=== PATIENT | female | born 1985 | race African-American/Black ===

== ENCOUNTER 2017-01-30 16:52 | Emergency (ER) | payer MEDICAID, OTHER ==
[~2017-01-30] VITALS: Ht 162.6 cm; Wt 74.5 kg
[~2017-01-30 16:52] MED LIST: HYDR-3965 PO; IBUP-1685 PO
[2017-01-30 17:22] LABS: BASOPHILS % (AUTO) 0.9 % (0.0-2.0); HEMATOCRIT 36.9 % (36-46); HEMOGLOBIN 12.5 g/dL (12.0-16.0); LYMPHOCYTES # (AUTO) 2.7 K/uL (1.0-4.8); LYMPHOCYTES % (AUTO) 23.6 % (22.0-44.0); MEAN CORPUSCULAR HEMOGLOBIN 29.1 pg (26.0-34.0); MEAN CORPUSCULAR VOLUME 86 fL (80-100); MONOCYTES # (AUTO) 0.7 K/uL (0.1-1.0); MONOCYTES % (AUTO) 5.9 % (2.0-9.0); NEUTROPHILS # (AUTO) 7.8 K/uL (1.8-7.7); NEUTROPHILS % (AUTO) 67.6 % (40.0-70.0); PLATELET COUNT (AUTO) 343 K/uL (150-450); RED BLOOD CELL COUNT(AUTO) 4.31 MIL/uL (4.00-5.20); RED CELL DISTRIBUTION WIDTH 13.4 % (11.5-14.5); WHITE BLOOD COUNT (AUTO) 11.5 K/uL (4.5-11.0)
[2017-01-30 17:38] LABS: ANION GAP 7 mmol/L (8-16); CALCIUM, TOTAL 8.8 mg/dL (8.8-10.5); CARBON DIOXIDE 30 mmol/L (22-29); CHLORIDE 104 mmol/L (98-107); CREATININE 0.67 mg/dL (0.60-1.30); GLOMERULAR FILTR. RATE CALC > 60 mL/min (>60); POTASSIUM 3.6 mmol/L (3.5-5.1); SODIUM SERUM 141 mmol/L (136-145); UREA NITROGEN, BLOOD 6 mg/dL (7-18)
[2017-01-30 18:05] LABS: ALANINE AMINOTRANSFERASE 17 U/L (12-78); ALBUMIN 3.3 g/dL (3.4-5.0); ASPARTATE AMINOTRANSFERASE 12 U/L (15-37); BILIRUBIN,TOTAL 0.2 mg/dL (0.1-1.0); TOTAL PROTEIN, SERUM 6.5 g/dL (6.4-8.2)
[2017-01-30] MEDS ORDERED: ACETAMINOPHEN 500 MG TABLET PO ONE (18:30)
[2017-01-30 21:14] VITALS: BP 120/69
== END 2017-01-30 22:00 | disposition home or self-care (01) ==
LOC: EMS 16:54
DX: O20.0 Threatened abortion (principal); I10 Essential (primary) hypertension; Z3A.01 Less than 8 weeks gestation of pregnancy
CPT/HCPCS: 76801; 76817; 99285

== ENCOUNTER 2017-06-28 14:30 | Emergency (ER) | payer OTHER ==
[~2017-06-28] VITALS: Ht 160 cm; Wt 78.2 kg
[2017-06-28 16:10] LABS: BASOPHILS # (AUTO) 0.04 K/uL (0.00-0.20); BASOPHILS % (AUTO) 0.3 % (0.0-2.0); EOSINOPHILS % (AUTO) 0.83 % (1.0-6.0); HEMATOCRIT 38.2 % (36-46); HEMOGLOBIN 13.1 g/dL (12.0-16.0); LYMPHOCYTES # (AUTO) 2.8 K/uL (1.0-4.8); LYMPHOCYTES % (AUTO) 23.4 % (22.0-44.0); MEAN CORPUSCULAR HEMOGLOBIN 29.5 pg (26.0-34.0); MEAN CORPUSCULAR HGB CONC 34.2 G/dL (31.0-37.0); MEAN CORPUSCULAR VOLUME 86 fL (80-100); MONOCYTES # (AUTO) 0.5 K/uL (0.1-1.0); NEUTROPHILS # (AUTO) 8.6 K/uL (1.8-7.7); NEUTROPHILS % (AUTO) 71.5 % (40.0-70.0); PLATELET COUNT (AUTO) 374 K/uL (150-450); RED BLOOD CELL COUNT(AUTO) 4.43 MIL/uL (4.00-5.20); RED CELL DISTRIBUTION WIDTH 12.9 % (11.5-14.5)
[2017-06-28 16:18] LABS: ANION GAP 7 mmol/L (8-16); CALCIUM, TOTAL 8.5 mg/dL (8.8-10.5); CARBON DIOXIDE 27 mmol/L (22-29); CHLORIDE 104 mmol/L (98-107); CREATININE 0.63 mg/dL (0.60-1.30); GLOMERULAR FILTR. RATE CALC > 60 mL/min (>60); POTASSIUM 3.7 mmol/L (3.5-5.1); SODIUM SERUM 138 mmol/L (136-145); UREA NITROGEN, BLOOD 8 mg/dL (7-18)
[2017-06-28 16:24] LABS: ALANINE AMINOTRANSFERASE 14 U/L (12-78); ALBUMIN 3.6 g/dL (3.4-5.0); ASPARTATE AMINOTRANSFERASE 12 U/L (15-37); BILIRUBIN,TOTAL 0.4 mg/dL (0.1-1.0)
[2017-06-28] MEDS ORDERED: ONDANSETRON HCL 4 MG/2 ML VIAL IVP ONE (16:45)
[2017-06-28] MEDS ORDERED: ACETAMINOPHEN 1000 MG/ISO-OSM 100 ML IV ONE (16:45)
[2017-06-28] MEDS ORDERED: SODIUM CHLORIDE 0.9% 1,000 ML IV ONE (16:45)
[2017-06-28 16:57] LABS: APPEARANCE,URINE CLOUDY (CLEAR); GLUCOSE, URINE (UA) NEGATIVE (NEGATIVE); KETONES,URINE NEGATIVE (NEGATIVE); LEUKOCYTE ESTERASE ,URINE MODERATE (NEGATIVE); OCCULT BLOOD,URINE SMALL (NEGATIVE); PROTEIN,URINE NEGATIVE (NEGATIVE)
[2017-06-28 17:00] LABS: ADD UA MICROSCOPIC YES
[2017-06-28 17:08] LABS: SQUAMOUS EPITHELIAL CELL,UR Many /LPF (None Seen)
[2017-06-28 17:50] VITALS: BP 138/74
== END 2017-06-28 18:35 | disposition home or self-care (01) ==
LOC: EMS 14:31
DX: O23.41 Unspecified infection of urinary tract in pregnancy, first trimester (principal); O10.911 Unspecified pre-existing hypertension complicating pregnancy, first trimester; O21.9 Vomiting of pregnancy, unspecified; O99.331 Smoking (tobacco) complicating pregnancy, first trimester; Z3A.08 8 weeks gestation of pregnancy
CPT/HCPCS: 36415; 76801; 76817; 80053; 81001; 83690; 84702; 84703; 85025; 87086; 96361; 96374; 96375; 99285; J0131; J2405; J7030

== ENCOUNTER 2017-08-13 03:25 | Emergency (ER) | payer OTHER ==
[~2017-08-13] VITALS: Ht 160 cm; Wt 73.6 kg
[2017-08-13] MEDS ORDERED: DOCO200C5 PO (03:43)
[2017-08-13] MEDS ORDERED: [UNRECOGNIZED DRUG - OTHER] PO (03:43)
[2017-08-13 04:25] LABS: BASOPHILS % (AUTO) 0.3 % (0.0-2.0); EOSINOPHILS % (AUTO) 1.1 % (1.0-6.0); HEMOGLOBIN 12.2 g/dL (12.0-16.0); LYMPHOCYTES # (AUTO) 1.8 K/uL (1.0-4.8); LYMPHOCYTES % (AUTO) 13.6 % (22.0-44.0); MEAN CORPUSCULAR HEMOGLOBIN 30.7 pg (26.0-34.0); MEAN CORPUSCULAR HGB CONC 34.9 G/dL (31.0-37.0); MEAN CORPUSCULAR VOLUME 88 fL (80-100); MONOCYTES # (AUTO) 0.7 K/uL (0.1-1.0); MONOCYTES % (AUTO) 5.5 % (2.0-9.0); NEUTROPHILS # (AUTO) 10.4 K/uL (1.8-7.7); NEUTROPHILS % (AUTO) 79.5 % (40.0-70.0); PLATELET COUNT (AUTO) 340 K/uL (150-450); RED BLOOD CELL COUNT(AUTO) 3.97 MIL/uL (4.00-5.20); RED CELL DISTRIBUTION WIDTH 12.3 % (11.5-14.5)
[2017-08-13 04:27] LABS: ANION GAP 2 mmol/L (8-16); CALCIUM, TOTAL 8.8 mg/dL (8.8-10.5); CARBON DIOXIDE 28 mmol/L (22-29); CHLORIDE 107 mmol/L (98-107); GLOMERULAR FILTR. RATE CALC > 60 mL/min (>60); GLUCOSE,RANDOM 99 mg/dL (70-110); POTASSIUM 3.9 mmol/L (3.5-5.1); SODIUM SERUM 137 mmol/L (136-145); UREA NITROGEN, BLOOD 15 mg/dL (7-18)
[2017-08-13 04:54] LABS: ALANINE AMINOTRANSFERASE 16 U/L (12-78); ALBUMIN 3.1 g/dL (3.4-5.0); ALKALINE PHOSPHATASE 40 U/L (46-116); ASPARTATE AMINOTRANSFERASE 12 U/L (15-37); BILIRUBIN,TOTAL 0.2 mg/dL (0.1-1.0); HCG,QUANTITATIVE 47229 mIU/mL (0-6); TOTAL PROTEIN, SERUM 6.9 g/dL (6.4-8.2)
[2017-08-13 04:56] LABS: APPEARANCE,URINE CLEAR (CLEAR); BILIRUBIN,URINE NEGATIVE (NEGATIVE); GLUCOSE, URINE (UA) NEGATIVE (NEGATIVE); KETONES,URINE NEGATIVE (NEGATIVE); LEUKOCYTE ESTERASE ,URINE NEGATIVE (NEGATIVE); NITRATE,URINE NEGATIVE (NEGATIVE); OCCULT BLOOD,URINE MODERATE (NEGATIVE); PROTEIN,URINE NEGATIVE (NEGATIVE); UROBILINOGEN,URINE 0.2 mg/dL (<=1.0)
[2017-08-13] MEDS ORDERED: SODIUM CHLORIDE 0.9% 1,000 ML IV ONE (05:00)
[2017-08-13] MEDS ORDERED: ONDANSETRON HCL 4 MG/2 ML VIAL IVP ONE (05:00)
[2017-08-13 05:12] LABS: BACTERIA,URINE Rare /HPF (None Seen); SQUAMOUS EPITHELIAL CELL,UR Few /LPF (None Seen); WBC,URINE 0-2 /HPF (0-5)
[2017-08-13 06:35] VITALS: BP 126/74
== END 2017-08-13 06:55 | disposition home or self-care (01) ==
LOC: EMS 03:26
DX: O26.892 Other specified pregnancy related conditions, second trimester (principal); R10.13 Epigastric pain; I10 Essential (primary) hypertension; F17.210 Nicotine dependence, cigarettes, uncomplicated; Z3A.15 15 weeks gestation of pregnancy; Z98.890 Other specified postprocedural states; Z79.899 Other long term (current) drug therapy
CPT/HCPCS: 36415; 76815; 80053; 81001; 84702; 85025; 96361; 96374; 99285; J2405; J7030

== ENCOUNTER 2017-11-18 20:05 | Observation (INO) | payer OTHER ==
[~2017-11-18] VITALS: Ht 160 cm; Wt 88.0 kg
[~2017-11-18 20:05] MED LIST changes: +DOCO200C5 PO; -HYDR-3965 PO; -IBUP-1685 PO; +[UNRECOGNIZED DRUG - OTHER] PO
[2017-11-18] MEDS ORDERED: PREN-134 PO (20:58)
[2017-11-18] MEDS ORDERED: DEXTROSE 5%-LACTATED RINGERS 1,000 ML IV ONE (21:15)
[2017-11-18 21:26] VITALS: BP 113/69
[2017-11-18 22:37] LABS: BILIRUBIN,URINE NEGATIVE (NEGATIVE); GLUCOSE, URINE (UA) NEGATIVE (NEGATIVE); KETONES,URINE NEGATIVE (NEGATIVE); LEUKOCYTE ESTERASE ,URINE SMALL (NEGATIVE); NITRATE,URINE NEGATIVE (NEGATIVE); OCCULT BLOOD,URINE MODERATE (NEGATIVE); PROTEIN,URINE NEGATIVE (NEGATIVE); UROBILINOGEN,URINE 0.2 mg/dL (<=1.0)
[2017-11-18 22:38] LABS: APPEARANCE,URINE HAZY (CLEAR)
[2017-11-18 22:49] LABS: BACTERIA,URINE Few /HPF (None Seen); SQUAMOUS EPITHELIAL CELL,UR Few /LPF (None Seen)
[2017-11-18 22:51] LABS: YEAST,URINE Rare /HPF (None Seen)
== END 2017-11-18 22:50 | disposition home or self-care (01) ==
LOC: 4S 20:05
PROVIDERS: ADMIT Obstetrics & Gynecology; ATTEND Obstetrics & Gynecology
DX: O26.893 Other specified pregnancy related conditions, third trimester (principal); Z3A.29 29 weeks gestation of pregnancy
CPT/HCPCS: 59025; 80307 ×8; 81001; 87086; 96360; G0378; X7700

== ENCOUNTER 2018-01-06 10:47 | Emergency (ER) | payer OTHER ==
[~2018-01-06] VITALS: Ht 165.1 cm; Wt 85.5 kg
[~2018-01-06 10:47] MED LIST changes: +PREN-134 PO
[2018-01-06] MEDS ORDERED: ACETAMINOPHEN 500 MG TABLET PO ONE (12:15)
[2018-01-06] MEDS ORDERED: PENICILLIN V POTASSIUM 500 MG TABLET PO ONE (12:15)
[2018-01-06 12:50] VITALS: BP 138/80
== END 2018-01-06 12:54 | disposition home or self-care (01) ==
LOC: EMS 10:49
DX: O16.3 Unspecified maternal hypertension, third trimester (principal); O99.333 Smoking (tobacco) complicating pregnancy, third trimester; O26.893 Other specified pregnancy related conditions, third trimester; O99.323 Drug use complicating pregnancy, third trimester; K04.7 Periapical abscess without sinus; F12.90 Cannabis use, unspecified, uncomplicated; Z3A.32 32 weeks gestation of pregnancy
CPT/HCPCS: 99283

== ENCOUNTER 2018-03-19 07:07 | Emergency (ER) | payer OTHER ==
[~2018-03-19] VITALS: Ht 160 cm; Wt 80.9 kg
[2018-03-19 07:48] VITALS: BP 149/109
[2018-03-19] MEDS ORDERED: IBUPROFEN 600 MG TABLET PO ONE (08:15)
== END 2018-03-19 09:45 | disposition home or self-care (01) ==
LOC: EMS 07:08
DX: S16.1XXA Strain of muscle, fascia and tendon at neck level, initial encounter (principal); I10 Essential (primary) hypertension; F17.210 Nicotine dependence, cigarettes, uncomplicated; F12.90 Cannabis use, unspecified, uncomplicated; Z87.440 Personal history of urinary (tract) infections; X58.XXXA Exposure to other specified factors, initial encounter; Y93.89 Activity, other specified; Y92.89 Other specified places as the place of occurrence of the external cause; Y99.8 Other external cause status
CPT/HCPCS: 99282; 99283

== ENCOUNTER 2018-05-31 19:54 | Emergency (ER) | payer OTHER | END 2018-05-31 20:04 | disposition left against medical advice (07) | LOC: EMS 19:56 | DX: R39.89 Other symptoms and signs involving the genitourinary system (principal); Z53.21 Procedure and treatment not carried out due to patient leaving prior to being seen by health care provider ==

== ENCOUNTER 2018-07-27 21:22 | Emergency (ER) | payer OTHER ==
[~2018-07-27] VITALS: Ht 154.9 cm; Wt 78.2 kg
[2018-07-27] MEDS ORDERED: LABE100 PO (21:28)
[2018-07-27] MEDS ORDERED: LIDOCAINE 1% 10 ML VIAL INJ ONE (22:00)
[2018-07-27] MEDS ORDERED: PERTUSS(ACELL),DIPH,TET VAC/PF 0.5 ML VIAL IM ONE (22:15)
[2018-07-27 23:02] VITALS: BP 139/95
== END 2018-07-27 23:05 | disposition home or self-care (01) ==
LOC: EMS 21:23
DX: S61.411A Laceration without foreign body of right hand, initial encounter (principal); I10 Essential (primary) hypertension; F17.210 Nicotine dependence, cigarettes, uncomplicated; F12.90 Cannabis use, unspecified, uncomplicated; W45.8XXA Other foreign body or object entering through skin, initial encounter; Y93.89 Activity, other specified; Y92.89 Other specified places as the place of occurrence of the external cause; Y99.8 Other external cause status
CPT/HCPCS: 12002; 90471; 90715; 99283; J3490

== ENCOUNTER 2018-08-01 11:48 | Emergency (ER) | payer OTHER ==
[~2018-08-01] VITALS: Ht 157.5 cm; Wt 78.2 kg
[~2018-08-01 11:48] MED LIST changes: -DOCO200C5 PO; +LABE100 PO; -PREN-134 PO; -[UNRECOGNIZED DRUG - OTHER] PO
[2018-08-01] MEDS ORDERED: BACITRACIN 0.9 GM PACKET OINTMENT TP ONE (13:00)
[2018-08-01 13:20] VITALS: BP 142/87
== END 2018-08-01 13:21 | disposition home or self-care (01) ==
LOC: EMS 11:49
DX: S61.411D Laceration without foreign body of right hand, subsequent encounter (principal); I10 Essential (primary) hypertension; F12.90 Cannabis use, unspecified, uncomplicated; F17.210 Nicotine dependence, cigarettes, uncomplicated; W45.8XXD Other foreign body or object entering through skin, subsequent encounter

== ENCOUNTER 2018-08-23 22:56 | Emergency (ER) | payer OTHER ==
[~2018-08-23] VITALS: Ht 160 cm; Wt 77.3 kg
[2018-08-23] MEDS ORDERED: LABETALOL PO (23:17)
[2018-08-24] MEDS ORDERED: KETOROLAC TROMETHAMINE 60 MG/2 ML VIAL IM ONE (02:00)
[2018-08-24 02:30] VITALS: BP 155/89
[2018-08-24] MEDS ORDERED: SULFAMETHOX/TRIMETH DS 800-160 MG/TABLET PO ONE (03:15)
== END 2018-08-24 03:23 | disposition home or self-care (01) ==
LOC: EMS 22:57
DX: S61.411D Laceration without foreign body of right hand, subsequent encounter (principal); I10 Essential (primary) hypertension; F17.210 Nicotine dependence, cigarettes, uncomplicated; F12.90 Cannabis use, unspecified, uncomplicated; Z48.02 Encounter for removal of sutures; X58.XXXD Exposure to other specified factors, subsequent encounter
CPT/HCPCS: 96372; 99283; J1885

== ENCOUNTER 2019-02-19 22:33 | Emergency (ER) | payer OTHER ==
[~2019-02-19] VITALS: Ht 160 cm; Wt 75.9 kg
[~2019-02-19 22:33] MED LIST changes: -LABE100 PO; +LABETALOL PO
[2019-02-19 23:06] LABS: BASOPHILS % (AUTO) 0.3 % (0.0-2.0); EOSINOPHILS % (AUTO) 0.8 % (1.0-6.0); HEMATOCRIT 36.5 % (36-46); HEMOGLOBIN 12.3 g/dL (12.0-16.0); LYMPHOCYTES # (AUTO) 1.4 K/uL (1.0-4.8); MEAN CORPUSCULAR HEMOGLOBIN 29.4 pg (26.0-34.0); MEAN CORPUSCULAR HGB CONC 33.6 G/dL (31.0-37.0); MEAN CORPUSCULAR VOLUME 88 fL (80-100); MONOCYTES # (AUTO) 0.6 K/uL (0.1-1.0); MONOCYTES % (AUTO) 7.3 % (2.0-9.0); NEUTROPHILS # (AUTO) 6.6 K/uL (1.8-7.7); NEUTROPHILS % (AUTO) 75.6 % (40.0-70.0); PLATELET COUNT (AUTO) 330 K/uL (150-450); RED BLOOD CELL COUNT(AUTO) 4.16 MIL/uL (4.00-5.20); RED CELL DISTRIBUTION WIDTH 12.9 % (11.5-14.5)
[2019-02-19 23:14] LABS: ANION GAP 6 mmol/L (8-16); CALCIUM, TOTAL 8.7 mg/dL (8.8-10.5); CARBON DIOXIDE 29 mmol/L (22-29); CHLORIDE 105 mmol/L (98-107); GLOMERULAR FILTR. RATE CALC > 60 mL/min (>60); GLUCOSE,RANDOM 77 mg/dL (70-110); POTASSIUM 3.3 mmol/L (3.5-5.1); SODIUM SERUM 140 mmol/L (136-145); UREA NITROGEN, BLOOD 8 mg/dL (7-18)
[2019-02-19 23:40] LABS: ALANINE AMINOTRANSFERASE 17 U/L (12-78); ALBUMIN 2.8 g/dL (3.4-5.0); ALKALINE PHOSPHATASE 58 U/L (46-116); ASPARTATE AMINOTRANSFERASE 17 U/L (15-37); BILIRUBIN,TOTAL 0.2 mg/dL (0.1-1.0); LIPASE 103 U/L (73-393); TOTAL PROTEIN, SERUM 6.6 g/dL (6.4-8.2)
[2019-02-19 23:41] LABS: HCG,QUANTITATIVE 74602 mIU/mL (0-6)
[2019-02-20 01:02] LABS: APPEARANCE,URINE CLEAR (CLEAR); BILIRUBIN,URINE NEGATIVE (NEGATIVE); GLUCOSE, URINE (UA) NEGATIVE (NEGATIVE); KETONES,URINE NEGATIVE (NEGATIVE); LEUKOCYTE ESTERASE ,URINE SMALL (NEGATIVE); NITRATE,URINE NEGATIVE (NEGATIVE); OCCULT BLOOD,URINE MODERATE (NEGATIVE); PH,URINE 6.5 (5.0-8.0); PROTEIN,URINE NEGATIVE (NEGATIVE)
[2019-02-20 01:09] LABS: BACTERIA,URINE None Seen /HPF (None Seen); SQUAMOUS EPITHELIAL CELL,UR Moderate /LPF (None Seen)
[2019-02-20] MEDS ORDERED: CEPHALEXIN MONOHYDRATE 500 MG CAPSULE PO ONE (02:00)
[2019-02-20 02:20] VITALS: BP 121/68
== END 2019-02-20 02:30 | disposition home or self-care (01) ==
LOC: EMS 22:39
DX: O21.0 Mild hyperemesis gravidarum (principal); O23.41 Unspecified infection of urinary tract in pregnancy, first trimester; Z3A.13 13 weeks gestation of pregnancy
CPT/HCPCS: 76801; 76817; 87086

== ENCOUNTER 2019-08-11 09:42 | Emergency (ER) | payer OTHER ==
[~2019-08-11] VITALS: Ht 167.6 cm; Wt 68.2 kg
[2019-08-11] MEDS ORDERED: NIFE10 PO (09:58)
[2019-08-11] MEDS ORDERED: LABE100T8 PO (09:58)
[2019-08-11] MEDS ORDERED: DEXAMETHASONE SOD PHOS 4 MG/ML 5 ML VIAL IVP ONE (10:15)
[2019-08-11] MEDS ORDERED: KETOROLAC TROMETHAMINE 30 MG/ML VIAL IVP ONE (10:15)
[2019-08-11] MEDS ORDERED: IOVERSOL 320 MG/ML 100 ML VIAL ONE (10:56)
[2019-08-11] MEDS ORDERED: SODIUM CHLORIDE 0.9% 100 ML ONE (10:56)
[2019-08-11 11:17] LABS: BASOPHILS % (AUTO) 0.3 % (0.0-2.0); EOSINOPHILS % (AUTO) 1.6 % (1.0-6.0); HEMATOCRIT 35.9 % (36-46); HEMOGLOBIN 11.3 g/dL (12.0-16.0); LYMPHOCYTES # (AUTO) 1.6 K/uL (1.0-4.8); LYMPHOCYTES % (AUTO) 14.5 % (22.0-44.0); MEAN CORPUSCULAR HEMOGLOBIN 25.4 pg (26.0-34.0); MEAN CORPUSCULAR HGB CONC 31.6 G/dL (31.0-37.0); MEAN CORPUSCULAR VOLUME 81 fL (80-100); MONOCYTES % (AUTO) 8.8 % (2.0-9.0); NEUTROPHILS # (AUTO) 8.1 K/uL (1.8-7.7); NEUTROPHILS % (AUTO) 74.8 % (40.0-70.0); PLATELET COUNT (AUTO) 441 K/uL (150-450); RED BLOOD CELL COUNT(AUTO) 4.46 MIL/uL (4.00-5.20); RED CELL DISTRIBUTION WIDTH 14.6 % (11.5-14.5)
[2019-08-11 11:26] LABS: ANION GAP 6 mmol/L (8-16); CALCIUM, TOTAL 8.8 mg/dL (8.8-10.5); CARBON DIOXIDE 30 mmol/L (22-29); CHLORIDE 105 mmol/L (98-107); CREATININE 0.66 mg/dL (0.60-1.30); GLOMERULAR FILTR. RATE CALC > 60 mL/min (>60); GLUCOSE,RANDOM 100 mg/dL (70-110); POTASSIUM 3.3 mmol/L (3.5-5.1); SODIUM SERUM 141 mmol/L (136-145); UREA NITROGEN, BLOOD 11 mg/dL (7-18)
[2019-08-11 11:38] LABS: ALANINE AMINOTRANSFERASE 12 U/L (12-78); ALBUMIN 3.4 g/dL (3.4-5.0); ALKALINE PHOSPHATASE 93 U/L (46-116); ASPARTATE AMINOTRANSFERASE 14 U/L (15-37); BILIRUBIN,TOTAL 0.7 mg/dL (0.1-1.0); HCG,QUANTITATIVE < 1 mIU/mL (0-6); TOTAL PROTEIN, SERUM 7.5 g/dL (6.4-8.2)
[2019-08-11] MEDS ORDERED: AMOXICILLIN TRIHYDRATE 250 MG CAPSULE PO ONE (13:00)
[2019-08-11 14:34] VITALS: BP 125/70
== END 2019-08-11 14:35 | disposition home or self-care (01) ==
LOC: EMS 09:44
DX: E86.0 Dehydration (principal); J02.0 Streptococcal pharyngitis; I10 Essential (primary) hypertension; F17.210 Nicotine dependence, cigarettes, uncomplicated; F12.90 Cannabis use, unspecified, uncomplicated
CPT/HCPCS: 36415; 70491; 71046; 80053; 84702; 85025; 87430; 96374; 96375; 99284; 99406; J1100; J1885; J7050; Q9967

== ENCOUNTER 2020-01-10 11:58 | Emergency (ER) | payer OTHER ==
[~2020-01-10] VITALS: Ht 160 cm; Wt 82.7 kg
[~2020-01-10 11:58] MED LIST changes: +LABE100T8 PO; -LABETALOL PO; +NIFE10 PO
[2020-01-10] MEDS ORDERED: NIFEdipine 10 MG CAPSULE PO ONE (12:15)
[2020-01-10] MEDS ORDERED: LABETALOL HCL 100 MG TABLET PO ONE (12:15)
[2020-01-10] MEDS ORDERED: IBUPROFEN 600 MG TABLET PO ONE (12:15)
[2020-01-10 12:36] LABS: BASOPHILS % (AUTO) 0.6 % (0.0-2.0); EOSINOPHILS % (AUTO) 2.6 % (1.0-6.0); HEMATOCRIT 39.4 % (36-46); HEMOGLOBIN 12.6 g/dL (12.0-16.0); LYMPHOCYTES # (AUTO) 2.3 K/uL (1.0-4.8); LYMPHOCYTES % (AUTO) 26.7 % (22.0-44.0); MEAN CORPUSCULAR HEMOGLOBIN 25.8 pg (26.0-34.0); MEAN CORPUSCULAR HGB CONC 31.9 G/dL (31.0-37.0); MEAN CORPUSCULAR VOLUME 81 fL (80-100); MONOCYTES # (AUTO) 0.5 K/uL (0.1-1.0); NEUTROPHILS # (AUTO) 5.5 K/uL (1.8-7.7); NEUTROPHILS % (AUTO) 64.1 % (40.0-70.0); PLATELET COUNT (AUTO) 350 K/uL (150-450); RED BLOOD CELL COUNT(AUTO) 4.88 MIL/uL (4.00-5.20); RED CELL DISTRIBUTION WIDTH 15.2 % (11.5-14.5)
[2020-01-10 13:14] VITALS: BP 159/94
== END 2020-01-10 13:18 | disposition home or self-care (01) ==
LOC: EMS 12:04
DX: N93.8 Other specified abnormal uterine and vaginal bleeding (principal); I10 Essential (primary) hypertension; F17.210 Nicotine dependence, cigarettes, uncomplicated

== ENCOUNTER 2020-01-31 00:23 | Emergency (ER) | payer OTHER ==
[~2020-01-31] VITALS: Ht 160 cm; Wt 80.0 kg
[2020-01-31] MEDS ORDERED: SODIUM CHLORIDE 0.9% 1,000 ML IV ONE (01:45)
[2020-01-31] MEDS ORDERED: KETOROLAC TROMETHAMINE 30 MG/ML VIAL IVP ONE (01:45)
[2020-01-31] MEDS ORDERED: 0.9% SODIUM CHLORIDE 10 ML SYRINGE IVP PRN (01:45)
[2020-01-31 02:13] LABS: BASOPHILS % (AUTO) 0.4 % (0.0-2.0); EOSINOPHILS % (AUTO) 1.5 % (1.0-6.0); HEMATOCRIT 37.1 % (36-46); HEMOGLOBIN 12.3 g/dL (12.0-16.0); LYMPHOCYTES # (AUTO) 1.5 K/uL (1.0-4.8); LYMPHOCYTES % (AUTO) 12.6 % (22.0-44.0); MEAN CORPUSCULAR HEMOGLOBIN 26.5 pg (26.0-34.0); MEAN CORPUSCULAR HGB CONC 33.1 G/dL (31.0-37.0); MEAN CORPUSCULAR VOLUME 80 fL (80-100); MONOCYTES # (AUTO) 1.1 K/uL (0.1-1.0); MONOCYTES % (AUTO) 9.2 % (2.0-9.0); NEUTROPHILS # (AUTO) 8.8 K/uL (1.8-7.7); NEUTROPHILS % (AUTO) 76.3 % (40.0-70.0); PLATELET COUNT (AUTO) 358 K/uL (150-450); RED BLOOD CELL COUNT(AUTO) 4.63 MIL/uL (4.00-5.20); RED CELL DISTRIBUTION WIDTH 15.1 % (11.5-14.5)
[2020-01-31 02:26] LABS: PROTHROMBIN TIME 9.9 SEC (9.4-11.6)
[2020-01-31 02:27] LABS: ANION GAP 14 mmol/L (8-16); CALCIUM, TOTAL 8.5 mg/dL (8.8-10.5); CARBON DIOXIDE 26 mmol/L (22-29); CHLORIDE 103 mmol/L (98-107); GLOMERULAR FILTR. RATE CALC > 60 mL/min (>60); GLUCOSE,RANDOM 119 mg/dL (70-110); SODIUM SERUM 143 mmol/L (136-145); UREA NITROGEN, BLOOD 9 mg/dL (7-18)
[2020-01-31 02:33] LABS: ALANINE AMINOTRANSFERASE 19 U/L (12-78); ALBUMIN 3.5 g/dL (3.4-5.0); ALKALINE PHOSPHATASE 65 U/L (46-116); ASPARTATE AMINOTRANSFERASE 13 U/L (15-37); BILIRUBIN,TOTAL 0.3 mg/dL (0.1-1.0); TOTAL PROTEIN, SERUM 7.1 g/dL (6.4-8.2)
[2020-01-31 02:36] LABS: LACTIC ACID 1.6 mmol/L (0.4-2.0)
[2020-01-31] MEDS ORDERED: POTASSIUM CHLORIDE 20 MEQ ER TABLET PO ONE (03:00)
[2020-01-31 03:10] LABS: APPEARANCE,URINE CLOUDY (CLEAR); BILIRUBIN,URINE NEGATIVE (NEGATIVE); GLUCOSE, URINE (UA) NEGATIVE (NEGATIVE); KETONES,URINE NEGATIVE (NEGATIVE); LEUKOCYTE ESTERASE ,URINE MODERATE (NEGATIVE); NITRATE,URINE NEGATIVE (NEGATIVE); OCCULT BLOOD,URINE LARGE (NEGATIVE); PH,URINE 6.5 (5.0-8.0); PROTEIN,URINE POS 1+ (NEGATIVE)
[2020-01-31 04:00] LABS: BACTERIA,URINE Few /HPF (None Seen); SQUAMOUS EPITHELIAL CELL,UR Few /LPF (None Seen); YEAST,URINE None Seen /HPF (None Seen)
[2020-01-31] MEDS ORDERED: CefTRIAXone 1 GM/DEXTROSE 50 ML IV ONE (06:15)
[2020-01-31 06:50] VITALS: BP 142/91
== END 2020-01-31 07:34 | disposition home or self-care (01) ==
LOC: EMS 00:23
DX: Q61.3 Polycystic kidney, unspecified (principal); F17.210 Nicotine dependence, cigarettes, uncomplicated; F12.90 Cannabis use, unspecified, uncomplicated
CPT/HCPCS: 36415; 74176; 80053; 81001; 81025; 83605; 84703; 85025; 85610; 87077; 87086; 96365; 96375; 99285; J0696; J1885; J7030

== ENCOUNTER 2020-03-02 22:35 | Inpatient (IN) | payer OTHER ==
[~2020-03-02] VITALS: Ht 160 cm; Wt 80.0 kg
[2020-03-03] MEDS ORDERED: PIPERACILLIN/TAZO 3.375 GM/D5W 50 ML IV ONE
[2020-03-03] MEDS ORDERED: MORPHINE SULFATE 2 MG/ML SYRINGE IVP ONE
[2020-03-03] MEDS ORDERED: ACETAMINOPHEN 500 MG TABLET PO ONE
[2020-03-03 00:03] LABS: BASOPHILS % (AUTO) 0.9 % (0.0-2.0); EOSINOPHILS % (AUTO) 1.2 % (1.0-6.0); HEMATOCRIT 31.2 % (36-46); HEMOGLOBIN 10.4 g/dL (12.0-16.0); LYMPHOCYTES # (AUTO) 1.9 K/uL (1.0-4.8); LYMPHOCYTES % (AUTO) 16.9 % (22.0-44.0); MEAN CORPUSCULAR HEMOGLOBIN 27.4 pg (26.0-34.0); MEAN CORPUSCULAR HGB CONC 33.4 G/dL (31.0-37.0); MEAN CORPUSCULAR VOLUME 82 fL (80-100); MONOCYTES # (AUTO) 1.1 K/uL (0.1-1.0); MONOCYTES % (AUTO) 9.5 % (2.0-9.0); NEUTROPHILS % (AUTO) 71.5 % (40.0-70.0); PLATELET COUNT (AUTO) 509 K/uL (150-450); RED CELL DISTRIBUTION WIDTH 16.2 % (11.5-14.5)
[2020-03-03 00:16] LABS: ANION GAP 9 mmol/L (8-16); CALCIUM, TOTAL 8.3 mg/dL (8.8-10.5); CARBON DIOXIDE 32 mmol/L (22-29); CHLORIDE 100 mmol/L (98-107); CREATININE 1.12 mg/dL (0.60-1.30); GLOMERULAR FILTR. RATE CALC > 60 mL/min (>60); GLUCOSE,RANDOM 104 mg/dL (70-110); POTASSIUM 3.6 mmol/L (3.5-5.1); SODIUM SERUM 141 mmol/L (136-145); UREA NITROGEN, BLOOD 11 mg/dL (7-18)
[2020-03-03 00:19] LABS: INR 1.1 (0.9-1.1); PROTHROMBIN TIME 11.1 SEC (9.4-11.6)
[2020-03-03 00:35] LABS: ALANINE AMINOTRANSFERASE 21 U/L (12-78); ALBUMIN 2.5 g/dL (3.4-5.0); ALKALINE PHOSPHATASE 66 U/L (46-116); ASPARTATE AMINOTRANSFERASE 18 U/L (15-37); BILIRUBIN,TOTAL 0.3 mg/dL (0.1-1.0); HCG,QUANTITATIVE < 1 mIU/mL (0-6); LIPASE 110 U/L (73-393); TOTAL PROTEIN, SERUM 7.3 g/dL (6.4-8.2)
[2020-03-03] MEDS ORDERED: SODIUM CHLORIDE 0.9% 1,000 ML IV ONE (00:45)
[2020-03-03 01:45] VITALS: BP 128/76
[2020-03-03] MEDS ORDERED: 0.9% SODIUM CHLORIDE 10 ML SYRINGE IVP PRN (01:45)
[2020-03-03] MEDS ORDERED: ACETAMINOPHEN 325 MG TABLET PO PRN ×2 (01:45→02:15)
[2020-03-03] MEDS ORDERED: ONDANSETRON HCL 4 MG/2 ML VIAL IVP PRN ×2 (01:45→02:15)
[2020-03-03] MEDS ORDERED: TraMADol HCL 50 MG TABLET PO SCH (02:15)
[2020-03-03 02:16] LABS: APPEARANCE,URINE CLEAR (CLEAR); BILIRUBIN,URINE NEGATIVE (NEGATIVE); GLUCOSE, URINE (UA) NEGATIVE (NEGATIVE); KETONES,URINE NEGATIVE (NEGATIVE); LEUKOCYTE ESTERASE ,URINE NEGATIVE (NEGATIVE); NITRATE,URINE NEGATIVE (NEGATIVE); OCCULT BLOOD,URINE MODERATE (NEGATIVE); PH,URINE 6.5 (5.0-8.0); PROTEIN,URINE NEGATIVE (NEGATIVE)
[2020-03-03 02:43] LABS: BACTERIA,URINE Rare /HPF (None Seen); SQUAMOUS EPITHELIAL CELL,UR Few /LPF (None Seen); WBC,URINE 0-2 /HPF (0-5)
[2020-03-03] MEDS ORDERED: PNEUMOCOCCAL VACCINE POLYVALENT 0.5 ML VIAL [PPSV23] IM ONE (03:30)
[2020-03-03] MEDS ORDERED: PIPERACILLIN/TAZO 3.375 GM/D5W 50 ML IV SCH (10:00)
== END 2020-03-03 05:30 | disposition left against medical advice (07) | DRG 463 ==
LOC: EMS 22:38 → 6N 03-03 01:56
PROVIDERS: ADMIT Internal Medicine; ATTEND Internal Medicine
DX: N15.1 Renal and perinephric abscess (principal); Z16.11 Resistance to penicillins; I10 Essential (primary) hypertension; K76.89 Other specified diseases of liver; R31.29 Other microscopic hematuria; F19.10 Other psychoactive substance abuse, uncomplicated; F17.210 Nicotine dependence, cigarettes, uncomplicated; Z87.440 Personal history of urinary (tract) infections
CPT/HCPCS: 87040; J2270; J2543; J7030

== ENCOUNTER 2020-03-03 05:53 | Emergency (ER) | payer OTHER ==
[~2020-03-03] VITALS: Ht 160 cm; Wt 80.0 kg
[2020-03-03 07:26] VITALS: BP 145/90
== END 2020-03-03 07:30 | disposition home or self-care (01) ==
LOC: EMS 05:53
DX: N15.1 Renal and perinephric abscess (principal); I10 Essential (primary) hypertension; F17.210 Nicotine dependence, cigarettes, uncomplicated; F12.90 Cannabis use, unspecified, uncomplicated
CPT/HCPCS: 99283; Z7502

== ENCOUNTER 2021-06-07 11:19 | Emergency (ER) | payer OTHER ==
[~2021-06-07] VITALS: Ht 160 cm; Wt 79.1 kg
[2021-06-07] MEDS ORDERED: HYDROCODONE/ACETAMINOPHEN 5-325 MG TABLET PO ONE (13:00)
[2021-06-07 13:47] LABS: BASOPHILS % (AUTO) 0.6 % (0.0-2.0); EOSINOPHILS % (AUTO) 0.2 % (1.0-6.0); HEMATOCRIT 45.2 % (36-46); HEMOGLOBIN 15.1 g/dL (12.0-16.0); LYMPHOCYTES # (AUTO) 1.4 K/uL (1.0-4.8); LYMPHOCYTES % (AUTO) 7.6 % (22.0-44.0); MEAN CORPUSCULAR HEMOGLOBIN 29.1 pg (26.0-34.0); MEAN CORPUSCULAR HGB CONC 33.4 G/dL (31.0-37.0); MEAN CORPUSCULAR VOLUME 87 fL (80-100); MONOCYTES % (AUTO) 5.2 % (2.0-9.0); NEUTROPHILS # (AUTO) 15.9 K/uL (1.8-7.7); PLATELET COUNT (AUTO) 424 K/uL (150-450); RED BLOOD CELL COUNT(AUTO) 5.18 MIL/uL (4.00-5.20); RED CELL DISTRIBUTION WIDTH 13.1 % (11.5-14.5)
[2021-06-07 13:51] LABS: BILIRUBIN,URINE NEGATIVE (NEGATIVE); GLUCOSE, URINE (UA) NEGATIVE (NEGATIVE); KETONES,URINE NEGATIVE (NEGATIVE); LEUKOCYTE ESTERASE ,URINE MODERATE (NEGATIVE); NITRATE,URINE NEGATIVE (NEGATIVE); PROTEIN,URINE SEE CONFIRM (NEGATIVE); UROBILINOGEN,URINE 0.2 mg/dL (<=1.0)
[2021-06-07 13:54] LABS: NEUTROPHILS % (AUTO) 86.4 % (40.0-70.0)
[2021-06-07 13:55] LABS: ANION GAP 7 mmol/L (8-16); CALCIUM, TOTAL 8.8 mg/dL (8.8-10.5); CARBON DIOXIDE 28 mmol/L (22-29); CHLORIDE 99 mmol/L (98-107); CREATININE 1.05 mg/dL (0.60-1.30); GLOMERULAR FILTR. RATE CALC > 60 mL/min (>60); GLUCOSE,RANDOM 170 mg/dL (70-110); POTASSIUM 3.7 mmol/L (3.5-5.1); SODIUM SERUM 134 mmol/L (136-145); UREA NITROGEN, BLOOD 12 mg/dL (7-18)
[2021-06-07 13:55] LABS: APPEARANCE,URINE SLIGHTLY CLOUDY (CLEAR); OCCULT BLOOD,URINE SMALL (NEGATIVE); SULFOSALICYLIC ACID,URINE 2+ (Negative)
[2021-06-07 13:56] LABS: BACTERIA,URINE Many /HPF (None Seen); SQUAMOUS EPITHELIAL CELL,UR Few /LPF (None Seen)
[2021-06-07 14:09] LABS: ALANINE AMINOTRANSFERASE 30 U/L (12-78); ALBUMIN 3.7 g/dL (3.4-5.0); ALKALINE PHOSPHATASE 98 U/L (46-116); ASPARTATE AMINOTRANSFERASE 17 U/L (15-37); BILIRUBIN,TOTAL 1.1 mg/dL (0.1-1.0); HCG,QUANTITATIVE 1 mIU/mL (0-6); TOTAL PROTEIN, SERUM 8.9 g/dL (6.4-8.2)
[2021-06-07] MEDS ORDERED: CefTRIAXone 1 GM/DEXTROSE 50 ML IV ONE (14:30)
[2021-06-07] MEDS ORDERED: KETOROLAC TROMETHAMINE 30 MG/ML VIAL IVP ONE (14:30)
[2021-06-07] MEDS ORDERED: SODIUM CHLORIDE 0.9% 1,000 ML IV ONE (14:30)
[2021-06-07] MEDS ORDERED: ONDANSETRON HCL 4 MG/2 ML VIAL IVP PRN ×2 (15:15→16:45)
[2021-06-07] MEDS ORDERED: HYDROCODONE/ACETAMINOPHEN 5-325 MG TABLET PO PRN ×3 (15:15→17:00)
[2021-06-07] MEDS ORDERED: MORPHINE SULFATE 4 MG/ML SYRINGE IVP PRN (15:15)
[2021-06-07] MEDS ORDERED: ACETAMINOPHEN 325 MG TABLET PO PRN ×2 (15:15→16:45)
[2021-06-07 15:27] LABS: COVID AG,FIA SOURCE NASOPHARYNGEAL
[2021-06-07 16:43] VITALS: BP 137/88
[2021-06-07] MEDS ORDERED: BISACODYL 10 MG RECTAL RECTAL SUPPOSITORY PR PRN (16:45)
[2021-06-07] MEDS ORDERED: ALBUTEROL SULFATE 2.5 MG/0.5 ML NEB SOLUTION NEB PRN (16:45)
[2021-06-07] MEDS ORDERED: MORPHINE SULFATE 2 MG/ML SYRINGE IVP PRN (16:45)
[2021-06-07] MEDS ORDERED: DOCUSATE SODIUM 100 MG CAPSULE PO PRN (16:45)
[2021-06-07] MEDS ORDERED: 0.9% SODIUM CHLORIDE 10 ML SYRINGE IVP PRN (16:45)
[2021-06-07] MEDS ORDERED: IPRATROPIUM BROMIDE 0.5 MG/2.5 ML NEB SOLUTION NEB PRN (16:45)
[2021-06-07] MEDS ORDERED: SODIUM CHLORIDE 0.9% 1,000 ML IV SCH (17:00)
[2021-06-08] MEDS ORDERED: CefTRIAXone 1 GM/DEXTROSE 50 ML IV SCH (09:00)
== END 2021-06-07 19:21 | disposition left against medical advice (07) ==
LOC: EMS 11:48
DX: N10 Acute pyelonephritis (principal); F17.210 Nicotine dependence, cigarettes, uncomplicated; I10 Essential (primary) hypertension; F12.90 Cannabis use, unspecified, uncomplicated; Z20.822 Contact with and (suspected) exposure to COVID-19
CPT/HCPCS: 36415; 74176; 76770; 80053; 81001; 84145; 84702; 85025; 87040; 87077; 87086; 87186; 87426; 96365; 96375; 99285; J0696; J1885; J7030; 81002

== ENCOUNTER 2021-08-29 19:44 | Emergency (ER) | payer OTHER ==
[~2021-08-29] VITALS: Ht 160 cm; Wt 80.0 kg
[2021-08-29 21:59] LABS: BASOPHILS % (AUTO) 0.2 % (0.0-2.0); EOSINOPHILS % (AUTO) 1.2 % (1.0-6.0); HEMATOCRIT 30.2 % (36-46); LYMPHOCYTES # (AUTO) 2.3 K/uL (1.0-4.8); LYMPHOCYTES % (AUTO) 16.2 % (22.0-44.0); MEAN CORPUSCULAR HEMOGLOBIN 27.5 pg (26.0-34.0); MEAN CORPUSCULAR HGB CONC 33.1 G/dL (31.0-37.0); MEAN CORPUSCULAR VOLUME 83 fL (80-100); MONOCYTES # (AUTO) 1.3 K/uL (0.1-1.0); MONOCYTES % (AUTO) 9.1 % (2.0-9.0); NEUTROPHILS # (AUTO) 10.5 K/uL (1.8-7.7); NEUTROPHILS % (AUTO) 73.3 % (40.0-70.0); PLATELET COUNT (AUTO) 658 K/uL (150-450); RED BLOOD CELL COUNT(AUTO) 3.63 MIL/uL (4.00-5.20); RED CELL DISTRIBUTION WIDTH 14.1 % (11.5-14.5)
[2021-08-29 22:11] LABS: ANION GAP 9 mmol/L (8-16); CARBON DIOXIDE 29 mmol/L (22-29); CHLORIDE 102 mmol/L (98-107); CREATININE 1.09 mg/dL (0.60-1.30); GLOMERULAR FILTR. RATE CALC > 60 mL/min (>60); GLUCOSE,RANDOM 138 mg/dL (70-110); POTASSIUM 3.6 mmol/L (3.5-5.1); SODIUM SERUM 140 mmol/L (136-145); UREA NITROGEN, BLOOD 10 mg/dL (7-18)
[2021-08-29 22:17] LABS: ALANINE AMINOTRANSFERASE 15 U/L (12-78); ALKALINE PHOSPHATASE 91 U/L (46-116); ASPARTATE AMINOTRANSFERASE 14 U/L (15-37); BILIRUBIN,TOTAL 0.4 mg/dL (0.1-1.0); TOTAL PROTEIN, SERUM 8.7 g/dL (6.4-8.2)
[2021-08-29 23:04] LABS: APPEARANCE,URINE CLEAR (CLEAR); BILIRUBIN,URINE NEGATIVE (NEGATIVE); GLUCOSE, URINE (UA) NEGATIVE (NEGATIVE); KETONES,URINE NEGATIVE (NEGATIVE); LEUKOCYTE ESTERASE ,URINE LARGE (NEGATIVE); NITRATE,URINE NEGATIVE (NEGATIVE); OCCULT BLOOD,URINE LARGE (NEGATIVE); PH,URINE 6.5 (5.0-8.0); PROTEIN,URINE SEE CONFIRM (NEGATIVE)
[2021-08-29 23:11] LABS: SULFOSALICYLIC ACID,URINE 3+ (Negative)
[2021-08-29 23:12] LABS: RBC,URINE 51-100 /HPF (0-2); SQUAMOUS EPITHELIAL CELL,UR Moderate /LPF (None Seen)
[2021-08-29 23:13] LABS: BACTERIA,URINE Many /HPF (None Seen); WBC,URINE 51-100 /HPF (0-5)
[2021-08-29] MEDS ORDERED: SULFAMETHOX/TRIMETH DS 800-160 MG/TABLET PO ONE (23:45)
[2021-08-29] MEDS ORDERED: HYDROCODONE/ACETAMINOPHEN 5-325 MG TABLET PO ONE (23:45)
[2021-08-29 23:48] VITALS: BP 129/76
== END 2021-08-30 00:34 | disposition home or self-care (01) ==
LOC: EMS 19:48
DX: N12 Tubulo-interstitial nephritis, not specified as acute or chronic (principal); I10 Essential (primary) hypertension; F12.90 Cannabis use, unspecified, uncomplicated; Z87.442 Personal history of urinary calculi
CPT/HCPCS: 80053; 81001; 81002; 84703; 85025; 87086; 99283

== ENCOUNTER 2022-07-03 10:30 | Emergency (ER) | payer OTHER ==
[~2022-07-03] VITALS: Ht 160 cm; Wt 85.0 kg
[2022-07-03] MEDS ORDERED: KETOROLAC TROMETHAMINE 30 MG/ML VIAL IVP ONE (11:30)
[2022-07-03] MEDS ORDERED: SODIUM CHLORIDE 0.9% 1,000 ML IV ONE (11:30)
[2022-07-03] MEDS ORDERED: ONDANSETRON HCL 4 MG/2 ML VIAL IVP ONE (11:30)
[2022-07-03] MEDS ORDERED: FAMOTIDINE 10 MG/ML 2 ML VIAL IVP ONE (11:30)
[2022-07-03] MEDS ORDERED: ACETAMINOPHEN 500 MG TABLET PO ONE (11:30)
[2022-07-03] MEDS ORDERED: SODIUM CHLORIDE 0.9% 100 ML ONE (12:05)
[2022-07-03] MEDS ORDERED: IOHEXOL 300 MG/ML 100 ML VIAL ONE (12:05)
[2022-07-03 12:27] LABS: APPEARANCE,URINE CLEAR (CLEAR); BILIRUBIN,URINE NEGATIVE (NEGATIVE); GLUCOSE, URINE (UA) NEGATIVE (NEGATIVE); KETONES,URINE NEGATIVE (NEGATIVE); LEUKOCYTE ESTERASE ,URINE MODERATE (NEGATIVE); NITRATE,URINE NEGATIVE (NEGATIVE); OCCULT BLOOD,URINE LARGE (NEGATIVE); PROTEIN,URINE 30-70 mg/dL (NEGATIVE); SPECIFIC GRAVITIY, URINE 1.013 (1.003-1.030); UROBILINOGEN,URINE <=1.0 mg/dL (<=1.0)
[2022-07-03 12:46] LABS: BASOPHILS % (AUTO) 0.5 % (0.0-2.0); EOSINOPHILS % (AUTO) 0.2 % (1.0-6.0); HEMATOCRIT 41.5 % (36-46); HEMOGLOBIN 13.9 g/dL (12.0-16.0); LYMPHOCYTES # (AUTO) 1.1 K/uL (1.0-4.8); LYMPHOCYTES % (AUTO) 7.1 % (22.0-44.0); MEAN CORPUSCULAR HEMOGLOBIN 29.2 pg (26.0-34.0); MEAN CORPUSCULAR HGB CONC 33.4 G/dL (31.0-37.0); MEAN CORPUSCULAR VOLUME 87 fL (80-100); MONOCYTES # (AUTO) 1.3 K/uL (0.1-1.0); MONOCYTES % (AUTO) 8.1 % (2.0-9.0); NEUTROPHILS # (AUTO) 13.3 K/uL (1.8-7.7); NEUTROPHILS % (AUTO) 84.1 % (40.0-70.0); PLATELET COUNT (AUTO) 370 K/uL (150-450); RED BLOOD CELL COUNT(AUTO) 4.75 MIL/uL (4.00-5.20); RED CELL DISTRIBUTION WIDTH 12.5 % (11.5-14.5)
[2022-07-03 12:52] LABS: ANION GAP 6 mmol/L (8-16); CALCIUM, TOTAL 8.5 mg/dL (8.8-10.5); CARBON DIOXIDE 28 mmol/L (22-29); CHLORIDE 102 mmol/L (98-107); CREATININE 0.87 mg/dL (0.60-1.30); GLUCOSE,RANDOM 103 mg/dL (70-110); POTASSIUM 3.1 mmol/L (3.5-5.1); SODIUM SERUM 136 mmol/L (136-145); UREA NITROGEN, BLOOD 11 mg/dL (7-18)
[2022-07-03 12:55] LABS: GLOMERULAR FILTR. RATE CALC > 60 mL/min (>60)
[2022-07-03 12:58] LABS: BACTERIA,URINE None Seen /HPF (None Seen); RBC,URINE 26-50 /HPF (0-2); SQUAMOUS EPITHELIAL CELL,UR Few /LPF (None Seen)
[2022-07-03 13:06] LABS: ALANINE AMINOTRANSFERASE 15 U/L (12-78); ALBUMIN 3.4 g/dL (3.4-5.0); ALKALINE PHOSPHATASE 80 U/L (46-116); ASPARTATE AMINOTRANSFERASE 13 U/L (15-37); BILIRUBIN,TOTAL 1.3 mg/dL (0.1-1.0); HCG,QUANTITATIVE < 1 mIU/mL (0-6); LIPASE 68 U/L (73-393); TOTAL PROTEIN, SERUM 7.6 g/dL (6.4-8.2)
[2022-07-03] MEDS ORDERED: CEPHALEXIN MONOHYDRATE 500 MG CAPSULE PO ONE (13:30)
[2022-07-03] MEDS ORDERED: ONDA-104 PO (13:56)
[2022-07-03] MEDS ORDERED: CEPH-558 PO (13:56)
[2022-07-03 14:11] VITALS: BP 133/79
== END 2022-07-03 14:43 | disposition home or self-care (01) ==
LOC: EMS 10:30
DX: N12 Tubulo-interstitial nephritis, not specified as acute or chronic (principal); F10.20 Alcohol dependence, uncomplicated; I10 Essential (primary) hypertension; Z87.440 Personal history of urinary (tract) infections; Z87.442 Personal history of urinary calculi; Z87.59 Personal history of other complications of pregnancy, childbirth and the puerperium
CPT/HCPCS: 99285; 74177; 96374; 96375; 96361; 80053; 81001; 83690; 84702; 85025; 36415; 87086; 87186; J3490; J1885; J2405; J7030; J7050; Q9967

== ENCOUNTER 2022-07-04 16:24 | Inpatient (IN) | payer OTHER ==
[~2022-07-04] VITALS: Ht 160 cm; Wt 76.1 kg
[~2022-07-04 16:24] MED LIST changes: +CEPH-558 PO; -LABE100T8 PO; -NIFE10 PO; +ONDA-104 PO
[2022-07-04] MEDS ORDERED: SODIUM CHLORIDE 0.9% 1,000 ML IV ONE (17:00)
[2022-07-04] MEDS ORDERED: CefTRIAXone 1 GM/DEXTROSE 50 ML IV ONE (17:00)
[2022-07-04] MEDS ORDERED: KETOROLAC TROMETHAMINE 30 MG/ML VIAL IVP ONE (17:00)
[2022-07-04 17:10] LABS: BASOPHILS % (AUTO) 0.6 % (0.0-2.0); EOSINOPHILS % (AUTO) 0.1 % (1.0-6.0); HEMATOCRIT 40.5 % (36-46); HEMOGLOBIN 13.7 g/dL (12.0-16.0); LYMPHOCYTES # (AUTO) 1.7 K/uL (1.0-4.8); LYMPHOCYTES % (AUTO) 11.5 % (22.0-44.0); MEAN CORPUSCULAR HEMOGLOBIN 29.4 pg (26.0-34.0); MEAN CORPUSCULAR HGB CONC 33.7 G/dL (31.0-37.0); MEAN CORPUSCULAR VOLUME 87 fL (80-100); MONOCYTES # (AUTO) 1.4 K/uL (0.1-1.0); MONOCYTES % (AUTO) 9.4 % (2.0-9.0); NEUTROPHILS # (AUTO) 11.4 K/uL (1.8-7.7); NEUTROPHILS % (AUTO) 78.4 % (40.0-70.0); PLATELET COUNT (AUTO) 329 K/uL (150-450); RED BLOOD CELL COUNT(AUTO) 4.65 MIL/uL (4.00-5.20); RED CELL DISTRIBUTION WIDTH 12.9 % (11.5-14.5)
[2022-07-04 17:23] LABS: ANION GAP 9 mmol/L (8-16); CALCIUM, TOTAL 8.7 mg/dL (8.8-10.5); CARBON DIOXIDE 27 mmol/L (22-29); CHLORIDE 100 mmol/L (98-107); CREATININE 0.96 mg/dL (0.60-1.30); GLUCOSE,RANDOM 113 mg/dL (70-110); SODIUM SERUM 136 mmol/L (136-145); UREA NITROGEN, BLOOD 9 mg/dL (7-18)
[2022-07-04 17:24] LABS: GLOMERULAR FILTR. RATE CALC > 60 mL/min (>60); POTASSIUM 2.9 mmol/L (3.5-5.1)
[2022-07-04 17:24] LABS: COVID AG,FIA SOURCE NASOPHARYNGEAL
[2022-07-04] MEDS ORDERED: POTASSIUM CHLORIDE 20 MEQ ER TABLET PO ONE (17:30)
[2022-07-04 17:32] LABS: LACTIC ACID 1.3 mmol/L (0.4-2.0)
[2022-07-04] MEDS ORDERED: POTASSIUM CHL 10 MEQ/WATER 50 ML IV SCH (18:30)
[2022-07-04] MEDS ORDERED: SODIUM CHLORIDE 0.9% 500 ML IV ONE (18:30)
[2022-07-04] MEDS ORDERED: MORPHINE SULFATE 2 MG/ML SYRINGE IVP PRN (18:30)
[2022-07-04] MEDS ORDERED: ACETAMINOPHEN 325 MG TABLET PO PRN ×2 (18:30)
[2022-07-04] MEDS ORDERED: ONDANSETRON HCL 4 MG/2 ML VIAL IVP PRN ×2 (18:30)
[2022-07-04] MEDS: SODIUM CHLORIDE 0.9% 1,000 ML IV SCH (19:39)
[2022-07-04 21:55] VITALS: BP 130/85
[2022-07-04] MEDS ORDERED: INFLUENZA VIRUS VACCINE QVS 2022-23 (6MO+)/PF 60 MCG/0.5 ML SYRINGE IM. ONE (23:45)
[2022-07-05] MEDS: HYDROCODONE/ACETAMINOPHEN 5-325 MG TABLET PO PRN ×2 (00:43→08:22)
[2022-07-05 04:19] VITALS: BP 139/97
[2022-07-05] MEDS: SODIUM CHLORIDE 0.9% 1,000 ML IV SCH (05:15)
[2022-07-05 05:37] LABS: BASOPHILS % (AUTO) 0.3 % (0.0-2.0); EOSINOPHILS % (AUTO) 0.9 % (1.0-6.0); HEMATOCRIT 35.9 % (36-46); LYMPHOCYTES # (AUTO) 1.8 K/uL (1.0-4.8); LYMPHOCYTES % (AUTO) 16.9 % (22.0-44.0); MEAN CORPUSCULAR HEMOGLOBIN 29.1 pg (26.0-34.0); MEAN CORPUSCULAR HGB CONC 33.5 G/dL (31.0-37.0); MEAN CORPUSCULAR VOLUME 87 fL (80-100); MONOCYTES # (AUTO) 1.1 K/uL (0.1-1.0); MONOCYTES % (AUTO) 9.8 % (2.0-9.0); NEUTROPHILS # (AUTO) 7.8 K/uL (1.8-7.7); NEUTROPHILS % (AUTO) 72.1 % (40.0-70.0); PLATELET COUNT (AUTO) 273 K/uL (150-450); RED BLOOD CELL COUNT(AUTO) 4.13 MIL/uL (4.00-5.20); RED CELL DISTRIBUTION WIDTH 12.5 % (11.5-14.5)
[2022-07-05 05:49] LABS: ANION GAP 9 mmol/L (8-16); CARBON DIOXIDE 22 mmol/L (22-29); CHLORIDE 108 mmol/L (98-107); CREATININE 0.79 mg/dL (0.60-1.30); GLUCOSE,RANDOM 110 mg/dL (70-110); POTASSIUM 3.6 mmol/L (3.5-5.1); SODIUM SERUM 139 mmol/L (136-145); UREA NITROGEN, BLOOD 11 mg/dL (7-18)
[2022-07-05 05:51] LABS: GLOMERULAR FILTR. RATE CALC > 60 mL/min (>60)
[2022-07-05 08:05] VITALS: BP 164/113
[2022-07-05] MEDS ORDERED: CIPR500T10 PO ×2 (11:08→12:06)
[2022-07-05] MEDS ORDERED: HYDR-4723 PO ×2 (11:09→11:47)
[2022-07-05] MEDS ORDERED: [UNRECOGNIZED DRUG - CODE] PO (11:33)
[2022-07-05] MEDS ORDERED: CefTRIAXone 1 GM/DEXTROSE 50 ML IV SCH (18:00)
[2022-07-06] MEDS ORDERED: HEPARIN SODIUM,PORCINE 5,000 UNITS/ML VIAL SQ SCH
== END 2022-07-05 13:30 | disposition home or self-care (01) | DRG 720 ==
LOC: EMS 16:28 → 6S 21:54
PROVIDERS: ADMIT Internal Medicine; ATTEND Internal Medicine
DX: A41.9 Sepsis, unspecified organism (principal); N12 Tubulo-interstitial nephritis, not specified as acute or chronic; I10 Essential (primary) hypertension; Z20.822 Contact with and (suspected) exposure to COVID-19; F17.210 Nicotine dependence, cigarettes, uncomplicated; E87.6 Hypokalemia; R73.9 Hyperglycemia, unspecified; Z71.51 Drug abuse counseling and surveillance of drug abuser; Z87.440 Personal history of urinary (tract) infections; Z79.899 Other long term (current) drug therapy; Z87.442 Personal history of urinary calculi
CPT/HCPCS: 74176; 80048; 83605; 83735; 84703; 85025; 87040; 99285; J0696; J1885; J2270; J3480; J7030; J7040

== ENCOUNTER 2023-02-17 22:50 | Emergency (ER) | payer OTHER ==
[~2023-02-17] VITALS: Ht 160 cm; Wt 85.0 kg
[~2023-02-17 22:50] MED LIST changes: -CEPH-558 PO; +CIPR500T10 PO; +HYDR-4723 PO; -ONDA-104 PO
[2023-02-17 22:52] VITALS: BP 173/112; PULSE 89; RESP 17; TEMP 99.1
== END 2023-02-17 23:15 | disposition left against medical advice (07) ==
LOC: EMS 23:04
DX: Z53.21 Procedure and treatment not carried out due to patient leaving prior to being seen by health care provider (principal)
CPT/HCPCS: 99281; Z7502

== ENCOUNTER 2023-03-19 10:50 | Emergency (ER) | payer OTHER ==
[~2023-03-19] VITALS: Ht 162.6 cm; Wt 72.7 kg
[2023-03-19 11:07] VITALS: TEMP 97.5
[2023-03-19] MEDS ORDERED: HYDROCODONE/ACETAMINOPHEN 5-325 MG TABLET PO ONE (13:00)
[2023-03-19] MEDS ORDERED: CEPHALEXIN MONOHYDRATE 500 MG CAPSULE PO ONE (13:00)
[2023-03-19] MEDS ORDERED: LIDOCAINE 1% 10 ML VIAL SQ ONE (13:00)
[2023-03-19] MEDS ORDERED: DOXYCYCLINE HYCLATE 100 MG TABLET PO ONE (13:00)
[2023-03-19] MEDS ORDERED: CEPH-558 PO (13:48)
[2023-03-19] MEDS ORDERED: ACET-2080 PO (13:48)
[2023-03-19] MEDS ORDERED: DOXY-354 PO (13:48)
[2023-03-19 14:10] VITALS: BP 135/76; PULSE 84; RESP 16
[2023-03-20] MEDS ORDERED: HYDR-4072 PO (08:10)
[2023-03-20] MEDS ORDERED: PENI500T2 PO (08:10)
[2023-03-20] MEDS ORDERED: IBUP-1554 PO (08:10)
== END 2023-03-19 14:26 | disposition home or self-care (01) ==
LOC: EMS 10:51
DX: L03.311 Cellulitis of abdominal wall (principal); I10 Essential (primary) hypertension; F12.90 Cannabis use, unspecified, uncomplicated; F17.210 Nicotine dependence, cigarettes, uncomplicated; Z98.890 Other specified postprocedural states
CPT/HCPCS: 99284; 10060; J3490

== ENCOUNTER 2023-03-20 07:09 | Emergency (ER) | payer OTHER ==
[~2023-03-20] VITALS: Ht 157.5 cm; Wt 68.2 kg
[~2023-03-20 07:09] MED LIST changes: +ACET-2080 PO; +CEPH-558 PO; -CIPR500T10 PO; +DOXY-354 PO; -HYDR-4723 PO
[2023-03-20 07:10] VITALS: BP 182/124; PULSE 63; RESP 16; TEMP 97.9
[2023-03-20] MEDS ORDERED: IBUP-1554 PO (08:10)
[2023-03-20] MEDS ORDERED: PENI500T2 PO (08:10)
[2023-03-20] MEDS ORDERED: HYDR-4072 PO (08:10)
[2023-03-20] MEDS ORDERED: HYDROCODONE/ACETAMINOPHEN 5-325 MG TABLET PO ONE (08:15)
== END 2023-03-20 08:33 | disposition home or self-care (01) ==
LOC: EMS 07:15
DX: K04.7 Periapical abscess without sinus (principal); L03.211 Cellulitis of face; L02.211 Cutaneous abscess of abdominal wall; I10 Essential (primary) hypertension; F12.90 Cannabis use, unspecified, uncomplicated; F17.210 Nicotine dependence, cigarettes, uncomplicated; Z98.890 Other specified postprocedural states
CPT/HCPCS: 99283

== ENCOUNTER 2023-04-15 17:16 | Emergency (ER) | payer OTHER ==
[~2023-04-15] VITALS: Ht 160 cm; Wt 80.9 kg
[~2023-04-15 17:16] MED LIST changes: +HYDR-4072 PO; +IBUP-1554 PO; +PENI500T2 PO
[2023-04-15 17:26] VITALS: TEMP 100.6
[2023-04-15] MEDS ORDERED: SODIUM CHLORIDE 0.9% 2,450 ML IV ONE (17:45)
[2023-04-15] MEDS ORDERED: ACETAMINOPHEN 1000 MG/ISO-OSM 100 ML IV ONE (17:45)
[2023-04-15] MEDS ORDERED: MORPHINE SULFATE 2 MG/ML SYRINGE IVP ONE (17:45)
[2023-04-15] MEDS ORDERED: 0.9% SODIUM CHLORIDE 10 ML SYRINGE IVP PRN (17:45)
[2023-04-15] MEDS ORDERED: VANCOMYCIN HCL 1.25 GM in DEXTROSE 5%-WATER 250 ML IV ONE (17:45)
[2023-04-15 17:59] LABS: COVID AG,FIA SOURCE NASOPHARYNGEAL
[2023-04-15 18:14] LABS: BASOPHILS % (AUTO) 0.1 % (0.0-2.0); EOSINOPHILS % (AUTO) 2.3 % (1.0-6.0); HEMATOCRIT 37.8 % (36-46); HEMOGLOBIN 12.7 g/dL (12.0-16.0); LYMPHOCYTES # (AUTO) 0.4 K/uL (1.0-4.8); LYMPHOCYTES % (AUTO) 5.2 % (22.0-44.0); MEAN CORPUSCULAR HEMOGLOBIN 29.7 pg (26.0-34.0); MEAN CORPUSCULAR HGB CONC 33.7 G/dL (31.0-37.0); MEAN CORPUSCULAR VOLUME 88 fL (80-100); MONOCYTES # (AUTO) 1.1 K/uL (0.1-1.0); MONOCYTES % (AUTO) 14.5 % (2.0-9.0); NEUTROPHILS # (AUTO) 5.7 K/uL (1.8-7.7); NEUTROPHILS % (AUTO) 77.9 % (40.0-70.0); PLATELET COUNT (AUTO) 300 K/uL (150-450); RED BLOOD CELL COUNT(AUTO) 4.29 MIL/uL (4.00-5.20); RED CELL DISTRIBUTION WIDTH 12.6 % (11.5-14.5); WHITE BLOOD COUNT (AUTO) 7.3 K/uL (4.5-11.0)
[2023-04-15 18:19] LABS: PROTHROMBIN TIME 10.7 SEC (9.4-11.6)
[2023-04-15 18:25] LABS: LACTIC ACID 1.6 mmol/L (0.4-2.0); TROPONIN I-HIGH SENSITIVITY 19 ng/L (<51)
[2023-04-15 18:27] LABS: B-TYPE NATRIURETIC PEPTIDE 59 pg/mL (0-100)
[2023-04-15 18:50] LABS: ALCOHOL, BLOOD (SERUM) < 3 mg/dL (0-10)
[2023-04-15 18:58] LABS: ALANINE AMINOTRANSFERASE 11 U/L (12-78); ALBUMIN 3.1 g/dL (3.4-5.0); ALKALINE PHOSPHATASE 63 U/L (46-116); ANION GAP 11 mmol/L (8-16); ASPARTATE AMINOTRANSFERASE 14 U/L (15-37); BILIRUBIN,TOTAL 0.4 mg/dL (0.1-1.0); CALCIUM, TOTAL 7.9 mg/dL (8.8-10.5); CARBON DIOXIDE 25 mmol/L (22-29); CHLORIDE 101 mmol/L (98-107); CREATINE KINASE, TOTAL ONLY 116 U/L (26-192); CREATININE 0.95 mg/dL (0.60-1.30); GLOMERULAR FILTR. RATE CALC > 60 mL/min (>60); GLUCOSE,RANDOM 111 mg/dL (70-110); HCG,QUANTITATIVE < 1 mIU/mL (0-6); SODIUM SERUM 137 mmol/L (136-145); TOTAL PROTEIN, SERUM 6.7 g/dL (6.4-8.2); UREA NITROGEN, BLOOD 9 mg/dL (7-18)
[2023-04-15 19:10] LABS: SARS-COV2 (COVID) ANTIGEN,FIA Positive (Negative)
[2023-04-15] MEDS ORDERED: POTASSIUM CHLORIDE 20 MEQ ER TABLET PO ONE ×2 (19:15→20:15)
[2023-04-15] MEDS ORDERED: IOHEXOL 350 MG/ML 100 ML VIAL ONE (19:44)
[2023-04-15] MEDS ORDERED: SODIUM CHLORIDE 0.9% 100 ML ONE (19:44)
[2023-04-15] MEDS ORDERED: MORPHINE SULFATE 2 MG/ML SYRINGE IVP PRN (20:00)
[2023-04-15] MEDS ORDERED: ACETAMINOPHEN 325 MG TABLET PO PRN (20:00)
[2023-04-15] MEDS ORDERED: ONDANSETRON HCL 4 MG/2 ML VIAL IVP PRN (20:00)
[2023-04-15] MEDS ORDERED: DOCUSATE SODIUM 100 MG CAPSULE PO SCH (21:00)
[2023-04-15 21:02] VITALS: BP 141/89; PULSE 78; RESP 16
[2023-04-15] MEDS ORDERED: PIPERACILLIN/TAZO 3.375 GM/D5W 50 ML IV SCH (22:00)
[2023-04-16] MEDS ORDERED: VANCOMYCIN HCL 750 MG in DEXTROSE 5%-WATER 250 ML IV SCH ×2
[2023-04-16] MEDS ORDERED: HEPARIN SODIUM,PORCINE 5,000 UNITS/ML VIAL SQ SCH (21:00)
== END 2023-04-15 23:17 | disposition left against medical advice (07) ==
LOC: EMS 17:17
DX: L03.317 Cellulitis of buttock (principal); U07.1 COVID-19; E87.6 Hypokalemia; I10 Essential (primary) hypertension; F12.90 Cannabis use, unspecified, uncomplicated; Z98.890 Other specified postprocedural states
CPT/HCPCS: 99285; 74177; 96365; 71045; 96366; 96375; 87426; 80053; 82550; 83605; 83880; 84484; 84702; 85025; 85610; 87040; 36415; 93005; 96368; 84145; G0480; J2270; J3370; Q9967; J7060; J7030; J7050; J0131

== ENCOUNTER 2023-04-16 00:40 | Emergency (ER) | payer OTHER ==
[~2023-04-16] VITALS: Ht 152.4 cm; Wt 41.0 kg
[2023-04-16 02:24] VITALS: BP 133/83; PULSE 134; RESP 20; TEMP 99.1
== END 2023-04-16 03:50 | disposition left against medical advice (07) ==
LOC: EMS 00:42
DX: R42 Dizziness and giddiness (principal); R11.0 Nausea; Z53.21 Procedure and treatment not carried out due to patient leaving prior to being seen by health care provider
CPT/HCPCS: 99281; Z7502